=== PATIENT | male | born 1975 | race Caucasian/White ===

== ENCOUNTER 2020-08-11 21:27 | Emergency (ER) | payer OTHER, SELFPAY ==
[2020-08-11 21:39] VITALS: BP 173/101; PULSE 99; RESP 18; TEMP 36.9; O2SAT 96; BMI 35.9
[2020-08-11 22:56] VITALS: BP 141/87; PULSE 87; RESP 16; O2SAT 98
--- NOTE | 2020-08-12 00:34 | ED_ITS ---
HPI - General Adult General Chief complaint: General Medical Stated complaint: nasal congestion Time Seen by Provider: 08/11/20 23:10 Source: patient Mode of arrival: ambulatory Limitations: no limitations History of Present Illness HPI narrative: Patient feeling his right nare is blocked no foreign body, patient feels anxious no trauma no nasal symptoms otherwise no sinus tenderness or swelling Related Data Allergies Allergy/AdvReac Type Severity Reaction Status Date / Time trazodone [TRAZODONE] Allergy Unknown ITCHY Unverified 12/01/19 16:08 haloperidol [From HALDOL] AdvReac Unknown PT STATES Unverified 12/01/19 16:08 ? DYSTONIC REACTION-STATES JAW SHIFTED TO LEFT topiramate [From TOPAMAX] AdvReac Unknown FIDGETY Unverified 12/01/19 16:08 From HALDOL AdvReac Unknown PT STATES Uncoded 12/01/19 16:08 ? DYSTONIC REACTION-STATES JAW SHIFTED TO LEFT Review of Systems Review of Systems: Yes all other systems are reviewed and are negative [facility] Social History Social History Advance Directives: No Advance Directives Information Provided: Yes Physical Exam Vital Signs: Vital Signs: Last Vital Signs Temp 98.5 F 08/11/20 21:39 Pulse 87 08/11/20 22:56 Resp 16 08/11/20 22:56 BP 141/87 H 08/11/20 22:56 Pulse Ox 98 08/11/20 22:56 Body Mass Index 35.9 Const: General: comfortable and anxious Orientation/consciousness: patient oriented x3 HENMT: Head: Yes normal to inspection Ears: hearing grossly normal bilaterally General nose exam: Normal external nose present, Normal nares present, No nasal polyps present, Normal nasal mucous membranes and turbinates present, Normal septum present and No nasal discharge present Face and sinus: Yes normal facial exam and Yes sinuses nontender Mouth: Normal oral and palatal mucosa present Teeth and gingiva: dentition normal Neck: Neck: Yes normal visual inspection Resp: Effort & Inspection: normal respiratory effort Neuro: General: patient oriented x3 and no focal motor deficits Medical Decision Making MDM Narrative Medical decision making narrative: Patient feel foreign body sensation in the right nostril but no foreign body was seen no trauma. Patient advised to follow-up with ENT Discharge Plan Discharge Clinical Impression: Congested nose Patient Disposition: Home, Self-Care Instructions: Allergic Rhinitis (ED) Additional Instructions: Taken loratadine 10 mg daily as needed for allergies Interventions: ED Discharge Assessment Last Done: 08/11/20 23:18 Discharge Date/Time: 08/11/20 23:22
== END 2020-08-11 23:22 | disposition home or self-care (01) ==
PROVIDERS: Emergency Provider Internal Medicine; PCP Family Medicine
DX: R09.81 Nasal congestion (principal)
CPT/HCPCS: 99284

== ENCOUNTER 2022-05-15 12:02 | Emergency (ER) | payer MEDICARE, MEDICAID, SELFPAY ==
--- NOTE | ~2022-05-15 | XR_ITS ---
EXAMINATION: XR NASAL BONES CLINICAL INFORMATION: Pain on examination. COMPARISON: None TECHNIQUE: 3 views of the nasal bones were obtained. FINDINGS: There are no fractures or dislocations. No bone, joint or soft tissue abnormality is demonstrated. XR/XR nasal bones min 3V IMPRESSION: Unremarkable left nasal bones.
[2022-05-15 12:47] VITALS: BP 169/90; PULSE 78; RESP 20; TEMP 36.8; O2SAT 95; BMI 34.4
--- NOTE | 2022-05-15 12:53 | ED.GENADULT ---
HPI - General Adult General Chief complaint: General Medical Stated complaint: nose injury Related Data Allergies Allergy/AdvReac Type Severity Reaction Status Date / Time trazodone [TRAZODONE] Allergy Unknown ITCHY Unverified 12/01/19 16:08 haloperidol [From HALDOL] AdvReac Unknown PT STATES Unverified 12/01/19 16:08 ? DYSTONIC REACTION-STATES JAW SHIFTED TO LEFT topiramate [From TOPAMAX] AdvReac Unknown FIDGETY Unverified 12/01/19 16:08 From HALDOL AdvReac Unknown PT STATES Uncoded 12/01/19 16:08 ? DYSTONIC REACTION-STATES JAW SHIFTED TO LEFT [facility] Social History Social History Advance Directives: No Advance Directives Information Provided: No Physical Exam ED Vital Signs: Vital Signs - 24 hr 05/15/22 12:47 Temperature 98.2 F Pulse Rate 78 Respiratory Rate 20 Blood Pressure 169/90 H Pulse Oximetry 95 Oxygen Delivery Method Room Air BMI result Body Mass Index 34.4 Course Course Course Narrative: 46-year-old male presents for evaluation of nasal pain. He reports that yesterday he was ?sticking a bulb suction of my note to clear congestion and I think I inserted it too far because I had something in it cause bleeding and now I feel a bump in the nose. ? Patient reports that he has severe anxiety regarding his nose which is being him feel worse. He is concerned that he ?broke my nose. ? On exam the patient has a small amount of dried blood within the right naris. There appears to be a small nasal polyps no other deformities. The plan for nasal x-ray Discharge Plan Discharge Clinical Impression: Nasal pain Patient Disposition: Elopement Interventions: ED Discharge Assessment Last Done: 05/15/22 14:15 Discharge Date/Time: 05/15/22 14:16
== END 2022-05-15 14:16 | disposition left against medical advice (07) ==
LOC: HO.ED 14:15
PROVIDERS: Emergency Provider Student in an Organized Health Care Education/Training Program; PCP Family Medicine
DX: J33.8 Other polyp of sinus (principal); R04.0 Epistaxis; J34.89 Other specified disorders of nose and nasal sinuses; F41.1 Generalized anxiety disorder
CPT/HCPCS: 70160; 99282; 99283